=== PATIENT | female | born 2005 | race Hispanic/Latino ===

== ENCOUNTER 2024-07-15 19:09 | Inpatient (IN) | payer OTHER ==
[~2024-07-15 19:09] MED LIST: Bupivacaine 0.25% HCL 30 ML VIAL ONE
[2024-07-15 19:29] VITALS: BMI 35.5
[2024-07-15 20:33] LABS: Fetal Membranes Rupture RUPTURE DETECTED (No Rupture)
[2024-07-15] MEDS ORDERED: Tranexamic Acid 1,000 MG/10 ML VIAL IVP PRN (20:53)
[2024-07-15] MEDS ORDERED: fentaNYL 50 mcg/mL 1 mL Vial SLOW IVP PRN (20:53)
[2024-07-15] MEDS ORDERED: Diphenoxylate HCl/Atropine Tablet PO PRN ×2 (21:00)
[2024-07-15] MEDS ORDERED: Carboprost 250 MCG/ML AMP IM PRN (21:00)
[2024-07-15] MEDS ORDERED: Methylergonovine 0.2 MG/ML VIAL IM PRN (21:00)
[2024-07-15] MEDS ORDERED: Oxytocin 30 units/NS 500 ML 500 ML IV SCH (21:00)
[2024-07-15] MEDS ORDERED: Promethazine HCl 25 MG/ML VIAL IM PRN (21:00)
[2024-07-15] MEDS ORDERED: Acetaminophen 500 MG TAB PO PRN (21:00)
[2024-07-15] MEDS ORDERED: Misoprostol 200 MCG TAB RC PRN (21:00)
[2024-07-15] MEDS ORDERED: HYDROcodone/Acetaminophen 5/325 mg Tablet PO PRN ×2 (21:00)
[2024-07-15] MEDS ORDERED: hydrALAZINE 20 MG/ML VIAL SLOW IVP PRN (21:00)
[2024-07-15] MEDS: Lactated Ringer's 1,000 ML IV SCH (21:11)
[2024-07-15 21:40] LABS: Hematocrit 37.2 % (34.9-44.5); Hemoglobin 12.5 g/dL (12.0-15.5); Mean Corpuscular HGB CONC 33.6 g/dL (32.0-36.0); Mean Corpuscular Hemoglobin 29.1 pg (27.0-33.0); Mean Corpuscular Volume 86.7 fL (81.6-98.3); Mean Platelet Volume 10.9 fL (7.4-10.4); Platelet Count 276 10x3/uL (150-450); RBC Distribution Width 14.1 % (11.5-14.5); Red Blood Cell (RBC) Count 4.29 10x6/uL (3.90-5.03); White Blood Cell (WBC) Count 13.1 10x3/uL (3.5-10.5)
[2024-07-15] MEDS: Penicillin G Potassium 5 MILL.UNITS in Sodium Chloride 0.9% 100 ML IVPB SCH (21:40)
[2024-07-15 23:19] LABS: HBsAg Index 0.17 S/CO (0-0.99); Hep B Surf Ag - L&D Non-Reactive S/CO (NonReactive)
[2024-07-15 23:20] LABS: Syphilis Antibody Nonreactive (Nonreactive); Syphilis Antibody Index 0.03 S/CO (<1.00 Non-Reactive)
[2024-07-16] MEDS: Ondansetron PF 4 MG/2 ML Vial IVP PRN (00:16)
[2024-07-16] MEDS: Penicillin G 2.5 MILL.units 2.5 MILL.UNITS in Premix 1 BAG IVPB SCH (01:29)
[2024-07-16] MEDS: fentaNYL/Ropivacaine Epidural 100 ML ONE (01:37)
[2024-07-16] MEDS ORDERED: diphenhydrAMINE 50 MG/ML VIAL IVP PRN (01:50)
[2024-07-16] MEDS ORDERED: Moisturizing Cream (Eucerin) 113 GM JAR TOP PRN (01:50)
[2024-07-16] MEDS ORDERED: Promethazine HCl 25 MG/ML VIAL IM PRN ×2 (01:50→15:11)
[2024-07-16] MEDS ORDERED: ePHEDrine Sulfate 50 MG/10 ML VIAL SLOW IVP PRN (01:50)
[2024-07-16] MEDS ORDERED: Naloxone HCl 0.4 mg/ml Vial IVP PRN ×2 (01:50)
[2024-07-16] MEDS ORDERED: Lactated Ringer's 500 ML IV PRN (01:50)
[2024-07-16] MEDS ORDERED: Acetaminophen 325 MG TAB PO PRN (01:50)
[2024-07-16] MEDS ORDERED: Ondansetron PF 4 MG/2 ML Vial IVP PRN ×2 (01:50→15:11)
[2024-07-16] MEDS ORDERED: fentaNYL 2 mcg/Ropivacaine 0.2% Epidural 100 ML CADD EPIDURAL SCH (02:00)
[2024-07-16] MEDS ORDERED: Communication Order-Pharmacy FS SCH (02:00)
[2024-07-16] MEDS: Calcium Carbonate 500 MG ChewTAB PO PRN (04:22)
[2024-07-16] MEDS: Oxytocin 30 units/NS 500 ML 500 ML IVPB SCH (07:34)
[2024-07-16] MEDS: Lidocaine 1% (PF) 30 ML VIAL SC PRN (07:40)
[2024-07-16] MEDS ORDERED: cloNIDine 0.1 MG TAB PO PRN (08:24)
[2024-07-16] MEDS: NIFEdipine XL 30 MG ER.TAB PO SCH (08:58)
[2024-07-16] MEDS: Ibuprofen 800 MG TAB PO PRN (09:55)
[2024-07-16] MEDS ORDERED: Bisacodyl 10 MG SUPP PR PRN (15:11)
[2024-07-16] MEDS ORDERED: Benzocaine-Menthol 82.5 ML CAN TOP PRN (15:11)
[2024-07-16] MEDS ORDERED: HYDROcodone/Acetaminophen 5/325 mg Tablet PO PRN (15:11)
[2024-07-16] MEDS ORDERED: Lanolin Ointment 7 GM TUBE TOP PRN (15:11)
[2024-07-16] MEDS ORDERED: diphenhydrAMINE 25 MG CAP PO PRN (15:11)
[2024-07-16] MEDS ORDERED: Milk Of Magnesia 30 ML UDCUP PO PRN (15:11)
[2024-07-16] MEDS ORDERED: hydrALAZINE 20 MG/ML VIAL SLOW IVP PRN (15:11)
[2024-07-16] MEDS: Ferrous Sulfate 325 MG TAB PO SCH (16:43)
[2024-07-16] MEDS: Ibuprofen 800 MG TAB PO SCH (18:32)
[2024-07-16] MEDS: Prenatal Vitamin 1 TAB PO SCH (18:33)
[2024-07-17] MEDS: Docusate 100 MG CAP PO SCH (00:49)
[2024-07-17] MEDS: Calcium Carbonate 500 MG ChewTAB PO PRN (03:46)
[2024-07-17] MEDS: Prenatal Vitamin 1 TAB PO SCH (08:23)
[2024-07-17] MEDS ORDERED: Boostrix 0.5 ML (Tdap) VIAL (>/=7 yrs of age) IM ONE (09:00)
[2024-07-18 07:27] VITALS: TEMP 98.3
[2024-07-18 10:56] VITALS: BP 115/57
== END 2024-07-18 15:30 | disposition home or self-care (01) | DRG 807 ==
LOC: CSHLD/OP 19:09 → CSHLD 20:41 → CSHPP 07-16 15:08
PROVIDERS: ADMIT Family Medicine; ATTEND Family Medicine
PROC: 10E0XZZ Delivery of Products of Conception, External Approach (ICD-10-PCS; principal; 2024-07-16)
PROC: 0UQMXZZ Repair Vulva, External Approach (ICD-10-PCS; 2024-07-16)
DX: O42.02 Full-term premature rupture of membranes, onset of labor within 24 hours of rupture (principal); Z37.0 Single live birth; Z3A.39 39 weeks gestation of pregnancy; O70.0 First degree perineal laceration during delivery
CPT/HCPCS: 36415; 51701; 51702; 84112; 85027; 86780; 86850; 86900; 86901; 87340; 99285; J0665; J2001; J2405; J2540; J2590; J7120

== ENCOUNTER 2024-07-28 12:10 | Emergency (ER) | payer OTHER | END 2024-07-28 12:55 | disposition home or self-care (01) | LOC: CSHERS 12:10 | DX: L50.9 Urticaria, unspecified (principal); T37.8X5A Adverse effect of other specified systemic anti-infectives and antiparasitics, initial encounter | CPT/HCPCS: 99282 ==